=== PATIENT | male | born 1995 | race Caucasian/White ===

== ENCOUNTER 2025-03-27 21:12 | Emergency (ER) | payer OTHER ==
[~2025-03-27] VITALS: Ht 165.1 cm; Wt 72.6 kg
[2025-03-27 21:30] VITALS: O2SAT 94
[2025-03-27] MEDS ORDERED: IPRATROPIUM BROMIDE 0.5 MG/2.5 ML NEBU ONE (21:37)
[2025-03-27] MEDS ORDERED: ALBUTEROL SULFATE 2.5 MG/3 ML NEBU ONE ×2 (21:37→22:08)
[2025-03-27 21:45] VITALS: O2SAT 99
[2025-03-27] MEDS ORDERED: LORAZEPAM 2 MG/1 ML VIAL IV ONE (21:45)
[2025-03-27] MEDS: ALBUTEROL SULFATE 2.5 MG/3 ML NEBU NEB ONE ×2 (21:46→22:55)
[2025-03-27] MEDS: IPRATROPIUM BROMIDE 0.5 MG/2.5 ML NEBU NEB ONE (21:46)
[2025-03-27] MEDS: IV NORMAL SALINE 1000 ML BAG IV ONE (21:49)
[2025-03-27 21:52] LABS: PLATELET COUNT (AUTO) 313 K/uL (152-348); RED BLOOD CELL COUNT(AUTO) 4.64 MIL/uL (4.06-5.63); RED CELL DISTRIBUTION WIDTH 12.9 % (12.1-16.2); WHITE BLOOD COUNT (AUTO) 9.1 K/uL (3.6-10.2)
[2025-03-27 22:01] LABS: CREATININE 1.1 mg/dL (0.6-1.3); SODIUM SERUM 141 mmol/L (136-145); UREA NITROGEN, BLOOD 19 mg/dL (7-18)
[2025-03-27 22:07] LABS: ASPARTATE AMINOTRANSFERASE 11 U/L (15-37); TOTAL PROTEIN, SERUM 8.3 g/dL (6.4-8.2)
[2025-03-27] MEDS ORDERED: BUDE10.2 INH (22:38)
[2025-03-27] MEDS ORDERED: ALBU2.5V38 IH (22:38)
[2025-03-27] MEDS ORDERED: ALBU18HF2 INH (22:38)
[2025-03-27] MEDS ORDERED: PRED20TA PO (22:38)
[2025-03-27 23:11] VITALS: BP 109/71
[2025-03-27 23:45] VITALS: O2SAT 94
[2025-03-28] MEDS ORDERED: LORATADINE 10 MG TABLET PO ONE (00:15)
[2025-03-28 00:45] VITALS: O2SAT 99
[2025-04-20 20:16] VITALS: BP 109/71; O2SAT 99
== END 2025-03-28 15:00 | disposition home or self-care (01) ==
LOC: ER 21:28
DX: J45.901 Unspecified asthma with (acute) exacerbation (principal)
CPT/HCPCS: 36415; 71045; 84484; 85025; A4606; A4663; J2919; J3590; J7040